=== PATIENT | male | born 1935 | race Caucasian/White ===

== ENCOUNTER → 2023-11-24 06:43 | Outpatient (REF) | payer OTHER, SELFPAY | LOC: MRI 3T 06:43 | PROVIDERS: ATTENDING PHYSICIAN Family Medicine | DX: R51.9 Headache, unspecified (principal) | CPT/HCPCS: 70551 ==

== ENCOUNTER 2024-02-22 11:49 | Emergency (ER) | payer OTHER, SELFPAY ==
[2024-02-22 11:58] VITALS: BP 124/78
[2024-02-22 12:36] VITALS: BP 132/82
[2024-02-22 12:38] LABS: % Basophils 0.4 % (0-2); % Eosinophils 0.7 % (0-6); % Immature Granulocytes 0.4 % (0-0.5); % Monocytes 9.6 % (1.7-9.3); % Neutrophils 72.9 % (42.2-75.2); Absolute Basophils 0.1 10^3/uL (0-0.2); Absolute Eosinophils 0.1 10^3/uL (0-0.7); Absolute Immature Granulocytes 0.1 10^3/uL (0-0.05); Absolute Lymphocytes 2.6 10^3/uL (1.2-3.4); Absolute Monocytes 1.5 10^3/uL (0.1-0.6); Absolute Neutrophils 11.7 10^3/uL (1.4-6.5); Hematocrit 37.7 % (39.0-52.0); Hemoglobin 12.7 g/dL (13.0-18.0); Mean Corp Hgb Conc. 33.7 g/dL (33.0-37.0); Mean Corpuscular Hgb 27.9 pg (27.0-31.0); Mean Corpuscular Volume 82.7 fL (80.0-94.0); Mean Platelet Volume 9.6 fL (7.4-10.4); Nucleated Red Blood Cells % 0 % (-); Platelet Count 237 10^3/uL (130-400); Red Blood Cell Count 4.56 10^6/uL (4.70-6.10); Red Cell Dist. Width 14.5 % (11.5-14.5)
--- NOTE | 2024-02-22 12:38 | ED.GENMED ---
Addendum entered and electronically signed by Abdi Morris PA-C 02/24/24 07:31:
Urine culture shows greater than 100,000 colony-forming units of E. coli. This is appointment result. Patient placed on antibiotics. Sensitivities pending
Original Note:
History of Present Illness
General
Chief Complaint: Urinary Symptoms
Source: patient and family (so at bedside)
Exam Limitations: none
Time Seen by Provider: 02/22/24 12:07
Nursing documentation reviewed up to this point in time: agreed with
History of Present Illness
History of Present Illness:
88 yo male w remote h/o PE, no longer anticoagulated, hx HTN, HLD, chronic back pain with shuffling gait post fall 2005, presents with sudden onset inability to control his urination since yesterday a.m. No recent trauma. He does not feel the urge
to urinate 'it just comes out' every 15 minutes even throughout the last night. Denies burning, abdominal pain. Denies fever/chills/n/v/d/c. Hasn't felt like eating or drinking since yesterday. No new back pain. Denies numbness, tingling, weakness
in his legs (than his chronic right leg weakness after his fall).
Past History
Past History
ED Past Medical History: HTN, Hypercholesterolemia, NIDDM, Other (Pulmonary embolism), Other (CKD) and Other (DJD, Lumbar spondylosis, foraminal stenosis, Lumbar radiculopathy)
ED Past Surgical History: Orthopedic
Social History
Tobacco: Former smoker
Living: with family
Review of Systems
Review of Systems
Allergies reviewed?: Yes
All Other Systems: ROS reviewed and negative except as documented in HPI and ROS
Constitutional: Denies fever, fatigue or chills
Respiratory: Denies trouble breathing
Cardiac: Denies chest pain
ABD/GI: Reports anorexia; Denies abdominal pain, nausea, vomiting or diarrhea
: Reports frequency and incontinence; Denies dysuria, flank pain or difficulty voiding
Musculoskeletal: Denies edema
Skin: Reports no symptoms
Neurological: Reports no symptoms
Phy Exam
Physical Exam
Physical Exam:
GENERAL: No acute distress. A&Ox3.
CONSTITUTIONAL: Afebrile.
ENMT: moist mucus membranes, Pharynx nl
RESPIRATORY: Regular respirations, nonlabored, lungs clear.
CARDIOVASCULAR: Regular rate and rhythm, no murmurs, no rubs.
GI: Soft, nontender, normal BS
MUSCULOSKELETAL: Back nontender to palpation. No edema, ambulates well with his normal shuffling gait. Well perfused.
SKIN: Warm, dry, pink
PSYCH: Normal mood and affect. Well kept, interactive and appropriate
NEUROLOGIC: Awake, alert and oriented. No focal neurological deficits. Strength equal 5/5 throughout.
Course
Orders/Labs/Results
Orders:
Orders
02/22/24 12:30
Complete Blood Count/With Diff Urgent
Comprehensive Metabolic Panel Urgent
02/22/24 12:37
Bladder Scan- Treatment ONCE
02/22/24 12:39
0.9% Sodium Chloride 500 ml [Nss] 500 ml IV BOLUS
02/22/24 12:50
Urinalysis Reflex To Culture Urgent
Date Specimen was Collected: 02/22/24
Time Specimen was Collected: 12:49
Urine Microscopic Reflex Cult Urgent
Urine Culture Urgent
SCARLET Source: U
Specimen Description:
Date Specimen was Collected: 02/22/24
Time Specimen was Collected: 12:49
02/22/24 13:22
CefTRIAXone [Rocephin] 1,000 mg IV NOW STA
Abnormal Lab Results
02/22/24 02/22/24
12:30 12:50
WBC 16.0 H 10^3/uL
(4.8-10.8)
RBC 4.56 L 10^6/uL
(4.70-6.10)
Hgb 12.7 L g/dL
(13.0-18.0)
Hct 37.7 L %
(39.0-52.0)
Abs Immat Gran (auto) 0.1 H 10^3/uL
(0-0.05)
Absolute Neuts (auto) 11.7 H 10^3/uL
(1.4-6.5)
Absolute Monos (auto) 1.5 H 10^3/uL
(0.1-0.6)
Lymphocytes % 16.0 L %
(20.5-51.1)
Monocytes % 9.6 H %
(1.7-9.3)
Glucose 142 H mg/dl
(70-99)
Total Bilirubin 2.8 H mg/dl
(0.2-1.3)
Ur Occult Blood Reflex 2+ A
(Negative)
Urine Nitrite (Reflex) Positive A
(Negative)
Leukocyte Esterase Rfl 2+ A
(Negative)
Urine RBC 16-20 A /HPF
(0-2)
Urine WBC (Reflex) 30-40 A /HPF
(0-5)
Urine Bacteria (Reflex) Many A
(Negative)
Urine Albumin (Reflex) 1+ A
(Neg - Trace)
02/22/24 12:30
02/22/24 12:30
Vital Signs
Initial and Last Documented VS:
Initial Vital Signs
Temp Pulse Resp BP Pulse Ox
98.0 F 90 16 124/78 98
02/22/24 11:58 02/22/24 11:58 02/22/24 11:58 02/22/24 11:58 02/22/24 11:58
Last Documented Vital Signs
Temp Pulse Resp BP Pulse Ox
98.0 F 83 16 131/73 98
02/22/24 11:58 02/22/24 13:00 02/22/24 13:00 02/22/24 13:00 02/22/24 11:58
MDM/Problems Addressed
Differential Diagnosis Includes:
UTI, prostatitis, BPH
MDM/Problems Addressed:
88 yo male w remote h/o PE, no longer anticoagulated, hx HTN, HLD, chronic back pain with shuffling gait post fall 2005, presents with sudden onset inability to control his urination since yesterday a.m. No recent trauma. He does not feel the urge
to urinate 'it just comes out' every 15 minutes even throughout the last night. Denies burning, abdominal pain. Denies fever/chills/n/v/d/c. Hasn't felt like eating or drinking since yesterday. No new back pain. Denies numbness, tingling, weakness
in his legs (than his chronic right leg weakness after his fall).
Afebrile, NAD
Pt totally non toxic appearing, pleasant, joking.
Abdomen benign
Bladder scan: 48 ml after last void about an hour ago. States unable to void now, NSS 500 ml infusing
CBC: WBC 16.0 otherwise unremarkable
CMP:unremarkable
U/A shows infection
Rx for Cefuroxime sent to his pharmacy. Rocephin 1 gm IV given.
Given his age and he states he has no hx BPH, no pain will not give Fluoroquinolone.
*Critical Care Note
Total Time (30-74mins, 75-104mins- exclusive of procedures): Not Applicable
ED Attending Note
-
Portions of this chart may have been created with voice recognition software.� Occasional wrong word or��sound alike� substitutions may have occurred due to the inherent limitations of voice recognition software.
Discharge Plan
Departure
Patient Disposition: Home (Routine Discharge)
Date of Disposition: 02/22/24
Time of Disposition: 13:28
Patient with high blood pressure during this ER visit?: No
Condition: Good
Discharge Problem:
Acute lower UTI (urinary tract infection)
Instructions: Urinary Tract Infection, Adult (DC)
Prescriptions:
New
cefuroxime axetil 500 mg tablet
500 mg PO BID Qty: 14 0RF
No Action
metformin 500 MG tablet
1,000 mg PO BID
aspirin [Aspir-Low] 81 MG tablet,delayed release (DR/EC)
81 mg PO MOFR
lisinopril 10 MG tablet
10 mg PO DAILY
atorvastatin 10 MG tablet
10 mg PO QPM
gabapentin 300 MG capsule
600 mg PO TID
acetaminophen 325 MG tablet
650 mg PO SDS-Q4HPRN PRN (Reason: mild pain) 0RF
acetaminophen 325 MG tablet
650 mg PO Q4HPRN PRN (Reason: mild pain or temp > 100.4 F) 0RF
atorvastatin 10 MG tablet
10 mg PO QPM 0RF
oxycodone-acetaminophen 5 MG/325 MG tablet
1 tab PO SDS-Q4HPRN PRN (Reason: moderate pain) 0RF
oxycodone-acetaminophen 5 MG/325 MG tablet
1 tab PO Q4HPRN PRN (Reason: moderate pain) 0RF
metformin 1,000 MG tablet
1,000 mg PO BID@0800,1700 0RF
lisinopril 10 MG tablet
10 mg PO DAILY 0RF
enoxaparin 40 MG/0.4 ML syringe
40 mg SC QPM 0RF
insulin aspart U-100 [Novolog FlexPen U-100 Insulin] 300 UNITS/3 ML insulin pen
0 units SC AC 0RF
pregabalin 25 MG capsule
25 mg PO BID 0RF
ondansetron HCl (PF) 4 MG/2 ML solution
4 mg IV SDS-ONCEPRN PRN (Reason: nausea/vomiting) 0RF
Referrals:
Wiley Carver MD [Family Provider] - Call in 1-3 days for appt
Oz Bautista MD [Active] - As needed
Activity Restrictions/Additional Instructions:
As we discussed, you have a urinary tract infection.
You were given a dose of antibiotics intravenously here today
I sent a prescription to your pharmacy for further antibiotic treatment. Pick it up and start the first dose tonight
Call make an appointment for follow-up with your doctor after the holiday weekend
Return here immediately for fever, chills, vomiting or feeling sicker in any way.
Interventions
Interventions:
*Risk Screen - Suicide Last Done: 02/22/24 12:37
*General Assessment Last Done: 02/22/24 12:37
*Neglect/Abuse Screening Last Done: 02/22/24 12:37
*Nursing Disposition Last Done: 02/22/24 14:08
ED-Male Genitourinary Assessment Last Done: 02/22/24 12:37
Discharge Date and Time
Discharge Date/Time: 02/22/24 14:08
Print Language: BELARUSIAN
[2024-02-22] MEDS: NSS 500 IV (12:49)
[2024-02-22 13:00] VITALS: BP 131/73
[2024-02-22 13:04] LABS: Urine Albumin 1+ (Neg - Trace); Urine Bilirubin Negative (Negative); Urine Character Slightly Cloudy (Clear); Urine Color Yellow; Urine Glucose Negative (Negative); Urine Ketone Negative (Negative); Urine Leukocyte 2+ (Negative); Urine Nitrite Positive (Negative); Urine Occult Blood 2+ (Negative); Urine Specific Gravity 1.025 (<1.030); Urine Urobilinogen Negative (Neg - 1+)
[2024-02-22 13:09] LABS: ALT (SGPT) 29 U/L (0-50); AST (SGOT) 24 U/L (17-59); Alkaline Phosphatase 74 U/L (38-126); Blood Urea Nitrogen 20 mg/dl (9-20); Calcium 9.4 mg/dl (8.4-10.2); Carbon Dioxide 25 mmol/L (22-30); Chloride 105 mmol/L (98-107); Glucose 142 mg/dl (70-99); Potassium 4.5 mmol/L (3.5-5.1); Sodium 141 mmol/L (135-145); Total Bilirubin 2.8 mg/dl (0.2-1.3); Total Protein 6.7 g/dl (6.3-8.2); eGFR > 60.00
[2024-02-22 13:10] LABS: Urine Red Blood Cell 16-20 /HPF (0-2); Urine White Cell 30-40 /HPF (0-5)
[2024-02-22 13:11] LABS: Urine Bacteria Many (Negative)
[2024-02-22] MEDS: ROCEPHIN 1000 MG IV (13:32)
== END 2024-02-22 14:08 | disposition home or self-care (01) ==
LOC: EMR 11:49
PROVIDERS: Registered Nurse; EMERGENCY PHYSICIAN Emergency Medicine; FAMILY PHYSICIAN Family Medicine
DX: N39.0 Urinary tract infection, site not specified (principal); M62.81 Muscle weakness (generalized); M54.9 Dorsalgia, unspecified; I12.9 Hypertensive chronic kidney disease with stage 1 through stage 4 chronic kidney disease, or unspecified chronic kidney disease; N18.9 Chronic kidney disease, unspecified; E78.00 Pure hypercholesterolemia, unspecified; E11.22 Type 2 diabetes mellitus with diabetic chronic kidney disease; M54.16 Radiculopathy, lumbar region; M48.061 Spinal stenosis, lumbar region without neurogenic claudication; G89.29 Other chronic pain; M47.26 Other spondylosis with radiculopathy, lumbar region; Z86.711 Personal history of pulmonary embolism; Z87.891 Personal history of nicotine dependence
CPT/HCPCS: 99284; 96374; 51798; 80053; 81003; 81015; 85025; 87086; 87088; 87186

== ENCOUNTER 2024-07-23 11:13 | Emergency (ER) | payer OTHER, MEDICARE, SELFPAY ==
[2024-07-23 11:16] VITALS: BP 155/97
--- NOTE | 2024-07-23 12:37 | ED.GENMED ---
History of Present Illness
General
Chief Complaint: Back Pain
Source: patient
Exam Limitations: none
Time Seen by Provider: 07/23/24 12:34
Nursing documentation reviewed up to this point in time: agreed with
History of Present Illness
History of Present Illness:
This is a 88-year-old male with past medical history of hypertension, hyperlipidemia presents emergency department today with concerns of low back pain. This started yesterday. Patient reports that he first started to notice the pain when he was
walking up 3 stairs into his house. Patient lives in a ranch her [place] 1 story home and states that there is 3 steps required to enter his house and 5 steps or so to exit the house. Patient denies any recent falls or any injury to the area. Of note,
patient started using an exercise machine recently at home that he just got this past week. Patient denies any chest pain or shortness of breath. He denies radiation of the pain into his legs. He denies any numbness or tingling sensation in his
legs or urinary or fecal incontinence. He does not take any blood thinners. Patient denies hematuria, dysuria,.
Past History
Past History
ED Past Medical History: HTN, Hypercholesterolemia, NIDDM, Other (Pulmonary embolism), Other (CKD) and Other (DJD, Lumbar spondylosis, foraminal stenosis, Lumbar radiculopathy)
ED Past Surgical History: Orthopedic
Social History
Tobacco: Former smoker
Living: with family
Review of Systems
Review of Systems
All Other Systems: ROS reviewed and negative except as documented in HPI and ROS
Phy Exam
Physical Exam
Physical Exam:
General: Patient is well appearing and in no acute distress; non-toxic
Skin: Warm and dry, no rashes or lesions
Head: Normocephalic, atraumatic
Eyes: Sclera non-icteric. EOMs intact. PERRLA.
Cardiac: Regular rate
Peripheral Vascular:No lower extremity swelling or edema
Pulm: Normal respiratory effort
Abdomen: No abdominal tenderness to palpation, no palpable masses
Musculoskeletal: Normal gate. 5/5 strength of bilateral lower extremities. No pain or bony abnormalities noted with passive ROM of bilateral hip joints. No tenderness to palpation of the lumbar spine, sacrum, or paraspinal muscles, no palpable spasm
Neuro: CN II-XII intact, no focal neurologic deficits.
Psychiatric: Appropriate mood and affect.
Course
Orders/Labs/Results
Orders:
Orders
07/23/24 12:57
CR Lumbar Spine 2 Or 3 Views Urgent
Comment:
Reason For Exam: low back pain
CR Sacrum/coccyx Min 2 View Urgent
Comment:
Reason For Exam: low back pain
Vital Signs
Initial and Last Documented VS:
Initial Vital Signs
Temp Pulse Resp BP Pulse Ox
98.0 F 87 18 155/97 97
07/23/24 11:16 07/23/24 11:16 07/23/24 11:16 07/23/24 11:16 07/23/24 11:16
Last Documented Vital Signs
Temp Pulse Resp BP Pulse Ox
98.0 F 76 18 160/96 97
07/23/24 11:16 07/23/24 14:30 07/23/24 14:30 07/23/24 14:30 07/23/24 14:30
MDM/Problems Addressed
Differential Diagnosis Includes:
ddx include lumbar sprain, sacral strain, compression fracture, kidney stone
MDM/Problems Addressed:
88-year-old male presents emergency department today with atraumatic low back pain. He has no associated urinary symptoms. He does not take a blood thinner. on exam he is well-appearing, he is in normal gait, he is no abdominal tenderness, he has
no tenderness palpation of the midline of the lumbar spine and no paraspinal tenderness. He is able to ambulate difficulties. He states that he took Tylenol for his pain. His x-rays reveal degenerative disc disease but no compression fracture.
Suspect patient's symptoms likely triggered by his new exercise regimen suspect likely lumbosacral strain. Discussed conservative management. Discussed return precautions. Patient stable for discharge.
Chronic conditions affecting care:
PE, HLP, HTN
*Pulse Oximetry
Patient hypoxic: no
*Critical Care Note
Total Time (30-74mins, 75-104mins- exclusive of procedures): Not Applicable
Data Reviewed
Review of Other/Old Records Reveals: Records (Reviewed ER physician augmentation from 02/22/2024 patient seen for acute lower UTI, reviewed discharge summary from 10/06/2021)
Source: patient and records
ED Attending Note
-
Portions of this chart may have been created with voice recognition software.� Occasional wrong word or��sound alike� substitutions may have occurred due to the inherent limitations of voice recognition software.
Discharge Plan
Departure
Patient Disposition: Home (Routine Discharge)
Date of Disposition: 07/23/24
Time of Disposition: 14:14
Patient with high blood pressure during this ER visit?: Yes
Condition: Good
Discharge Problem:
Lumbosacral strain
Instructions: Low Back Pain (DC), BLOOD PRESSURE
Prescriptions:
No Action
metformin 500 MG tablet
1,000 mg PO BID
aspirin [Aspir-Low] 81 MG tablet,delayed release (DR/EC)
81 mg PO MOFR
lisinopril 10 MG tablet
10 mg PO DAILY
atorvastatin 10 MG tablet
10 mg PO QPM
gabapentin 300 MG capsule
600 mg PO TID
acetaminophen 325 MG tablet
650 mg PO SDS-Q4HPRN PRN (Reason: mild pain) 0RF
acetaminophen 325 MG tablet
650 mg PO Q4HPRN PRN (Reason: mild pain or temp > 100.4 F) 0RF
atorvastatin 10 MG tablet
10 mg PO QPM 0RF
oxycodone-acetaminophen 5 MG/325 MG tablet
1 tab PO SDS-Q4HPRN PRN (Reason: moderate pain) 0RF
oxycodone-acetaminophen 5 MG/325 MG tablet
1 tab PO Q4HPRN PRN (Reason: moderate pain) 0RF
metformin 1,000 MG tablet
1,000 mg PO BID@0800,1700 0RF
lisinopril 10 MG tablet
10 mg PO DAILY 0RF
enoxaparin 40 MG/0.4 ML syringe
40 mg SC QPM 0RF
insulin aspart U-100 [Novolog FlexPen U-100 Insulin] 300 UNITS/3 ML insulin pen
0 units SC AC 0RF
pregabalin 25 MG capsule
25 mg PO BID 0RF
ondansetron HCl (PF) 4 MG/2 ML solution
4 mg IV SDS-ONCEPRN PRN (Reason: nausea/vomiting) 0RF
cefuroxime axetil 500 mg tablet
500 mg PO BID Qty: 14 0RF
Referrals:
Wiley Carver MD [Family Provider] -
Peyman Henderson MD [Active] - Call in 1-3 days for appt
Activity Restrictions/Additional Instructions:
Please follow up with your primary care provider.
Please take a break from your exercise machine for the next 3 days. You can take 1 gram of Tylenol (2 extra strength) every 6 hours as needed. Please do not exceed 4 g in a day.
PLEASE RETURN TO THE EMERGENCY DEPARTMENT SHOULD YOU DEVELOP INABILITY TO AMBULATE, FEVERS OR CHILLS, LOSS OF SENSATION IN THE LEGS, GENITAL NUMBNESS OR TINGLING, URINARY OR FECAL INCONTINENCE, OR ANY OTHER SIGNS OR SYMPTOMS WORRISOME TO YOU.
Interventions
Interventions:
*Risk Screen - Suicide Last Done: 07/23/24 11:16
*General Assessment Last Done: 07/23/24 14:21
*Neglect/Abuse Screening Last Done: 07/23/24 11:16
ED- Fall Risk Assessment Last Done: 07/23/24 14:21
*ED COVID-19 Vaccine History Last Done: 07/23/24 14:21
*Nursing Disposition Last Done: 07/23/24 14:45
ED-Musculoskeletal Assessment Last Done: 07/23/24 14:21
Discharge Date and Time
Discharge Date/Time: 07/23/24 14:45
Print Language: [email or web address]
[2024-07-23 14:30] VITALS: BP 160/96
== END 2024-07-23 14:45 | disposition home or self-care (01) ==
LOC: EMR 11:13
PROVIDERS: EMERGENCY PHYSICIAN Emergency Medicine; FAMILY PHYSICIAN Family Medicine
DX: S39.012A Strain of muscle, fascia and tendon of lower back, initial encounter (principal); X58.XXXA Exposure to other specified factors, initial encounter; I12.9 Hypertensive chronic kidney disease with stage 1 through stage 4 chronic kidney disease, or unspecified chronic kidney disease; E11.22 Type 2 diabetes mellitus with diabetic chronic kidney disease; N18.9 Chronic kidney disease, unspecified; E78.00 Pure hypercholesterolemia, unspecified; Z86.711 Personal history of pulmonary embolism; Z87.891 Personal history of nicotine dependence
CPT/HCPCS: 99283; 72100; 72220

== ENCOUNTER → 2024-12-15 15:02 | Outpatient (REF) | payer OTHER, MEDICARE, SELFPAY ==
[2024-12-15 16:20] LABS: Blood Urea Nitrogen 16 mg/dl (9-20)
== END ==
LOC: REG 15:02
PROVIDERS: ATTENDING PHYSICIAN Otolaryngology
DX: Z01.818 Encounter for other preprocedural examination (principal)
CPT/HCPCS: 36415; 82565; 84520

== ENCOUNTER → 2024-12-22 06:54 | Outpatient (REF) | payer OTHER, SELFPAY | LOC: RAD 06:54 | PROVIDERS: ATTENDING PHYSICIAN Otolaryngology; FAMILY PHYSICIAN Family Medicine | DX: E78.2 Mixed hyperlipidemia (principal); M54.16 Radiculopathy, lumbar region; M99.83 Other biomechanical lesions of lumbar region; M51.360 Other intervertebral disc degeneration, lumbar region with discogenic back pain only; M47.816 Spondylosis without myelopathy or radiculopathy, lumbar region; D37.030 Neoplasm of uncertain behavior of the parotid salivary glands | CPT/HCPCS: 70491; Q9967 ==